=== PATIENT | female | born 1985 | race African-American/Black ===

== ENCOUNTER 2021-08-07 09:05 | Emergency (ER) | payer OTHER ==
[2021-08-07 09:13] VITALS: BP 103/68; PULSE 57; TEMP 97.9; BMI 23.1
[2021-08-07 10:49] LABS: BASO % 0.7 % (0-2.0); HEMATOCRIT 33.6 % (32.4-45.2); HEMOGLOBIN 11.2 GM/dL (10.7-15.3); LYMPH % 15.8 % (8-40); MCH 29.2 pg (25.7-33.7); MCHC 33.3 g/dl (32.0-36.0); MEAN CELL VOLUME 87.6 fl (80-96); MEAN PLT VOLUME 9.4 fl (7.5-11.1); MONO % 6.3 % (3.8-10.2); NEUT % 76.2 % (42.8-82.8); PLATELET COUNT 224 10^3/uL (134-434); RBC 3.83 M/mm3 (3.60-5.2); WHITE BLOOD COUNT 9.1 K/mm3 (4.0-10.0)
[2021-08-07 11:04] LABS: EPI CELLS 6 /uL (0-25.1); HYALINE CASTS 1 /uL (0-3.1); PH,URINE 5.5 (5.0-8.0); URINE APPEARANCE CLEAR; URINE BACTERIA 121 /uL (0-1359); URINE BILIRUBIN NEGATIVE (NEGATIVE); URINE COLOR YELLOW; URINE GLUCOSE (UA) NEGATIVE (NEGATIVE); URINE KETONE NEGATIVE (NEGATIVE); URINE LEUK ESTERASE NEGATIVE (NEGATIVE); URINE NITRITE NEGATIVE (NEGATIVE); URINE PROTEIN NEGATIVE (NEGATIVE); URINE RBC 8 /uL (0-23.9); URINE UROBILINOGEN 0.2 mg/dL (0.2-1.0); URINE WBC 9 /uL (0-25.8)
[2021-08-07 11:05] LABS: HCG,QUALITATIVE URINE Negative
[2021-08-07 11:17] LABS: CALCIUM 9.2 mg/dL (8.5-10.1)
[2021-08-07 11:21] LABS: CREATININE 0.8 mg/dL (0.55-1.3)
== END 2021-08-07 12:52 | disposition home or self-care (01) ==
LOC: JER 09:05
DX: R07.89 Other chest pain (principal)
CPT/HCPCS: 36415; 71046-TC-FY; 80048; 81003; 84484; 84703; 85025; 93005; 93010; 99285-25

== ENCOUNTER 2021-08-20 10:33 | Day surgery (SDC) | payer OTHER ==
[2021-08-20] MEDS ORDERED: FERRIC CARBOXYMALTOSE 750 MG in SODIUM CHLORIDE 250 ML IVPB ONE (11:15)
[2021-08-20 12:21] VITALS: BP 112/72; PULSE 64; TEMP 98.7
== END 2021-08-20 12:39 | disposition home or self-care (01) ==
LOC: FINFUSION 10:33 → FM/S 10:35 → FINFUSION 12:39
PROVIDERS: ATTEND Nurse Practitioner Adult Health
PROC: 3E033GC Introduction of Other Therapeutic Substance into Peripheral Vein, Percutaneous Approach (ICD-10-PCS; principal; 2021-08-20)
DX: D50.9 Iron deficiency anemia, unspecified (principal)
CPT/HCPCS: 81025; 96365; J1439